=== PATIENT | female | born 1940 | race Caucasian/White ===

== ENCOUNTER → 2016-09-13 | Outpatient (CLI) | payer OTHER ==
[~2016-09-13] MED LIST: CALC600T9 PO; MULTCAP7 PO; MULTTAB58 PO; SIMV40TA4 PO
--- NOTE | 2016-09-13 09:45 | DIAGNOSTIC IMAGING REPORT ---
LEFT KNEE 1 OR 2 VIEWS ROUTINE CLINICAL HISTORY: LEFT KNEE PAIN pain COMPARISON: None. DISCUSSION: Mild degenerative change all major joint compartments. No evidence for fracture dislocation. No evidence for chondrocalcinosis. Cortical margins are intact. There is no evidence for soft tissue swelling. IMPRESSION: Mild degenerative change all major joint compartments. No acute process. Electronically signed by: Dustin Hussein M.D. 09/13/2016 9:43 AM Dictated Date/Time: 09/13/2016 9:43 AM
== END | disposition home or self-care (01) ==
LOC: C.RAD1850 09:31
PROVIDERS: ATTEND Family Medicine
DX: M25.562 Pain in left knee (principal)

== ENCOUNTER 2025-04-28 07:48 | Inpatient (IN) ==
[2025-04-28] MEDS: ACETAMINOPHEN 1,000 MG/100 ML VIAL IV STA (08:07)
--- NOTE | 2025-04-28 08:08 | Emergency Department Note ---
Impression & Plan Fall from standing, Closed left humeral fracture, Acute pain of left knee, Ambulatory dysfunction ED Provider Note HISTORY OF PRESENT ILLNESS: Patient is an 85-year-old female presenting with left shoulder pain and left knee pain after a fall. Patient reports that she was wearing flip-flops and returning from the bathroom this morning when she went to get into bed and her left foot seem to get caught and she fell to the ground. She reports that she landed on her left knee and her left shoulder and did strike her head. She denies loss of consciousness. She is not on any anticoagulation or antiplatelet therapies. Reports immediate pain and deformity to the left shoulder. Denies any numbness or tingling in her extremities. Denies any chest pain, shortness of breath or lightheadedness prior to her fall. She is currently complaining of 10 out of 10 pain in the left shoulder and pain in the left knee. ROS: as above PHYSICAL EXAM: Constitutional: Patient appears in no acute distress. HENT: Head: Normocephalic and atraumatic. Eyes: EOMI, PERRL Mouth/Throat: Mucous membranes moist. Neck: Trachea midline. Neck supple. No midline cervical spine TTP Cardiovascular: RRR, No murmurs, rubs or gallops. Intact distal pulses. Pulmonary/Chest: No respiratory distress. Breath sounds clear and equal bilaterally. No wheezes or rales. No chest wall tenderness to palpation. Abdominal: Abdomen soft, no tenderness, rebound or guarding. Back: No midline spinal tenderness, no paraspinal tenderness, no CVA tenderness. Musculoskeletal: - LUE: TTP to left anterior shoulder. No open wounds or obvious deformity. Unable to range shoulder secondary to pain. Patient holding arm flexed at elbow and held to body in position of comfort. Able to passively flex/extend elbow. Able to give "OK" sign, cross fingers and thumbs up. Sensation intact to light touch throughout nerve distributions of arm. Able to flex/extend at wrist. Intact radial pulse - LLE: TTP over left anterior knee. No obvious open wounds. Patient able to flex and extend knee. Intact DP/PT pulses. Able to dorsiflex/plantarflex ankle. No TTP to pelvis and not pain with internal/external rotation of femur at pelvis. Sensation intact to light touch throughout nerve distributions of of leg. Skin: Warm and dry. No rash, erythema, pallor or cyanosis Psychiatric: Appropriate mood and affect for situation. Neurological: Alert and keenly responsive. CN II-XII grossly intact MDM: - Vitals signs showed hypertension. Patient alerted as an "injury alert" on arrival to ER. - History obtained via patient. History as above. - Chronic conditions affecting care: HTN; HLD - Differential diagnoses include, but are not limited to: shoulder dislocation; humeral fracture; clavicular fracture; intracranial hemorrhage; knee contusion; knee fracture - Order placed for continuous cardiac monitoring. At this time, monitor showed rate of 84 bpm with normal sinus rhythm, per my interpretation. - External medical records reviewed. On review of patient's chart, her last tetanus shot was 05/12/2012. - EKG image interpreted by myself showed normal sinus rhythm. Rate 82 bpm. QT 376. No acute ischemic changes. - Laboratory workup interpreted by myself showed normal WBC; normal PT/INR; stable electrolytes; normal troponin; normal lipase - CT head wo contrast negative for acute intracranial pathology - CT cervical spine wo contrast negative for acute cervical spine fracture or subluxation. Noted to have a subpleural irregular linear right upper lobe density. Follow-up CT recommended. - Xray left shoulder reviewed interpreted by myself shows a left proximal humeral fracture, Per my interpretation. - CXR image negative for pneumonia. - Xray left knee negative for fracture. - Patient initially given 1g IV tylenol and 50 mcg IV fentanyl in ER. On reassessment, she is still complaining of significant pain in the left shoulder. Given 4 mg IV Zofran and 4 mg IV morphine - LUE was placed in sling for immobilization - Patient is attempted with an ambulatory challenge with nursing staff. However, nurses reports the patient is very unsteady and was unable to ambulate without assistance. Patient normally ambulates without any assistive devices at home. As such, will discuss case with hospitalist service for admission. - Discussion was had with transplant case manager about patient's case and need for admission - Hospitalist consulted for admission - Patient admitted to [facility] hospitalist service for further evaluation and management. ASSESSMENT AND PLAN: Diagnosis: Fall from standing; left humerus fracture; ambulatory dysfunction; acute left knee pain Plan: Admit Past Med/Surg History Problem List (Updated 04/28/25 @ 12:30 by Leda Casas MD) Ambulatory dysfunction (Acute) Acute pain of left knee (Acute) Closed left humeral fracture (Acute) Fall from standing (Acute) Numbness of right hand Neck pain Bilateral carotid bruits Ocular migraine Pessary maintenance Cystocele, midline Hyperlipidemia Hypertension Depression with anxiety Migraine optical Arthritis Chronic cough Cerumen impaction Medical History Presence of pessary Numbness and tingling in right hand History of anemia Hearing deficit Right-sided carotid artery obstruction Neck pain Osteoarthritis Chronic venous stasis Chronic cough Hypertension Hyperlipidemia Ocular migraine History of COVID-19 Hx of uterine prolapse Surgical History History of left cataract extraction History of colonoscopy Hx of tonsillectomy H/O wisdom tooth extraction H/O hysterectomy for benign disease History of ear surgery Family History Mother Hearing loss Stroke Sister Hearing loss Heart disease Breast cancer Hypertension Uterine cancer Grandfather (Maternal) Hearing loss Father Asthma Daughter Breast cancer Other No family history of adverse response to anesthesia Denies family history of Clotting disorder Social History Smoking Status: Never smoker Second Hand Exposure: No; Do You Dip or Chew Tobacco: No; Hx Alcohol Use: No Hx Substance Use: No Preferred Language: Tajik Communication Ability: Effective 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 Beliefs That Will Affect Care: None Current Living Situation: Alone current occupational status: retired Feels Safe at Home: Yes Assistive Devices: Denture - Upper, Denture - Lower and Glasses Allergies Allergies Allergy/AdvReac Type Severity Reaction Status Date / Time latex Allergy Mild skin Verified 12/23/24 14:12 redness Home Meds Home Medications Medication Instructions Recorded Confirmed multivitamin 1 cap PO QAM 01/28/19 04/28/25 simvastatin 40 mg tablet 40 mg PO QPM 01/28/19 04/28/25 ascorbic acid 1,000 1 ea PO 3XWK 11/22/23 04/28/25 [id number] powder effervescent pack (Emergen-C) cholecalciferol (vitamin D3) 125 125 mcg PO QAM 11/22/23 04/28/25 mcg (5,000 unit) tablet (Vitamin D3) losartan 50 mg tablet 100 mg PO QAM 11/22/23 04/28/25 amlodipine 5 mg tablet 2.5 mg PO DAILY 12/23/24 04/28/25 docusate sodium 100 mg capsule 0 mg PO UD 04/28/25 04/28/25 polyethylene glycol 3350 17 gram 17 g PO UD 04/28/25 04/28/25 oral powder packet (Miralax) Results & Data (ED) Vital Signs Vital Signs - 24 hr 04/28/25 08:15 04/28/25 08:15 04/28/25 08:22 Temperature 36.6 C 36.6 C Temperature Source Oral Oral Pulse Rate 88 77 Pulse Rate [Apical] 88 Pulse Rhythm Regular Regular Pulse Rhythm [Apical] Regular Pulse Strength Normal Pulse Strength [Apical] Normal Respiratory Rate 12 18 12 Respiratory Effort / Characteristics Non-Labored Spontaneous Non-Labored Spontaneous Respiratory Depth Normal Normal Respiratory Pattern Regular Regular Blood Pressure 178/77 H Blood Pressure [Right Arm] 178/77 H Blood Pressure Mean 110 Blood Pressure Mean [Right Arm] 110 Blood Pressure Position Semi-fowlers Blood Pressure Position [Right Arm] Semi-fowlers Pulse Oximetry 97 99 99 Oxygen Delivery Method Room Air Room Air Room Air Sepsis Recent Fever Within 48 Hours No Sepsis New/Unexplained Change in Mental Status No Sepsis Action Taken by Nursing No Action Required 04/28/25 08:23 04/28/25 09:22 04/28/25 10:00 Temperature Temperature Source Pulse Rate 82 Pulse Rate [Apical] 80 100 H Pulse Rhythm Pulse Rhythm [Apical] Regular Regular Pulse Strength Pulse Strength [Apical] Normal Normal Respiratory Rate 14 22 Respiratory Effort / Characteristics Non-Labored Spontaneous Non-Labored Spontaneous Respiratory Depth Normal Normal Respiratory Pattern Regular Regular Blood Pressure Blood Pressure [Right Arm] 143/67 H 160/82 H Blood Pressure Mean Blood Pressure Mean [Right Arm] 92 108 Blood Pressure Position Blood Pressure Position [Right Arm] Semi-fowlers Semi-fowlers Pulse Oximetry 97 96 Oxygen Delivery Method Room Air Room Air Sepsis Recent Fever Within 48 Hours Sepsis New/Unexplained Change in Mental Status Sepsis Action Taken by Nursing 04/28/25 11:00 04/28/25 12:07 04/28/25 12:24 Temperature Temperature Source Pulse Rate 84 Pulse Rate [Apical] 88 93 H Pulse Rhythm Pulse Rhythm [Apical] Regular Pulse Strength Pulse Strength [Apical] Normal Respiratory Rate 23 18 Respiratory Effort / Characteristics Non-Labored Spontaneous Non-Labored Spontaneous Respiratory Depth Normal Normal Respiratory Pattern Regular Regular Blood Pressure Blood Pressure [Right Arm] 132/63 119/79 Blood Pressure Mean Blood Pressure Mean [Right Arm] 86 92 Blood Pressure Position Blood Pressure Position [Right Arm] Semi-fowlers Lying Pulse Oximetry 96 95 Oxygen Delivery Method Room Air Room Air Sepsis Recent Fever Within 48 Hours Sepsis New/Unexplained Change in Mental Status Sepsis Action Taken by Nursing Laboratory Data 04/28/25 08:02 04/28/25 08:02 Lab Results 04/28/25 04/28/25 Range/Units 08:02 09:05 WBC 9.69 (4.8-10.8) K/ul RBC 4.31 (4.20-5.40) M/uL Hgb 13.6 (12.0-16.0) g/dl Hct 39.9 (37.0-47.0) % MCV 92.6 (80.0-100.0) fL MCH 31.6 (25.0-34.0) pg MCHC 34.1 (32.0-36.0) g/dL RDW Std Deviation 48.3 H (36.4-46.3) fL RDW Coeff of Kim 14.3 (11.5-14.5) % Plt Count 258 (130-400) K/uL MPV 10.3 (9.4-12.4) fL Immature Gran % (Auto) 0.6 % Neut % (Auto) 72.8 % Lymph % (Auto) 18.1 % [place] % (Auto) 5.9 % Eos % (Auto) 1.9 % Baso % (Auto) 0.7 % Neut # (Auto) 7.06 H (1.40-6.50) K/uL Lymph # (Auto) 1.75 (1.20-3.40) K/uL [place] # (Auto) 0.57 (0.11-0.59) K/uL Eos # (Auto) 0.18 (0.00-0.50) K/uL Baso # (Auto) 0.07 (0.00-0.20) K/uL Immature Gran # (Auto) 0.06 (0.01-0.20) K/uL PT Cancelled 10.5 INR Cancelled 1.0 Sodium 141 (136-145) mmol/L Potassium 4.1 (3.5-5.1) mmol/L Chloride 106 (98-107) mmol/L Carbon Dioxide 28 (21-32) mmol/L Anion Gap 7 (3-11) BUN 21 (6-23) mg/dl Creatinine 0.94 (0.6-1.2) mg/dl Est Cr Clr Drug Dosing 47.0 ml/min eGFR 60.21 BUN/Creatinine Ratio 22.3 H (10-20) Glucose 125 H (70-99(Fasting)) mg/dl Calcium 9.4 (8.6-10.3) mg/dl Total Bilirubin 0.5 (0.2-1.0) mg/dl AST 28 (13-39) U/L ALT 22 (7-52) U/L Alkaline Phosphatase 60 (34-104) U/L Troponin I High Sens 4.7 (0-14) pg/ml Total Protein 7.3 (6.0-8.3) gm/dl Albumin 4.5 (3.4-5.0) gm/dl Globulin 2.8 (2.5-4.0) gm/dl Albumin/Globulin Ratio 1.6 (0.9-2) Lipase 37 (11-82) U/L Administered Medications Discontinued Medications Fentanyl Citrate (Fentanyl Citrate Pf 100 Mcg/2 Ml Vial) 50 mcg IV NOW STA Stop: 04/28/25 07:57 Last Admin: 04/28/25 08:07 Dose: 50 mcg Documented By: Acetaminophen (Ofirmev) 1,000 mg in 100 mls @ 400 mls/hr IV NOW STA Stop: 04/28/25 08:10 Last Infusion: 04/28/25 08:24 Dose: Infused Documented By: Admin: 04/28/25 08:07 Dose: 400 mls/hr Documented By: Morphine Sulfate (Morphine Sulfate 4 Mg/Ml 1 Ml Carp\\Vial) 4 mg IV NOW STA Stop: 04/28/25 10:57 Last Admin: 04/28/25 11:14 Dose: 4 mg Documented By: Ondansetron HCl (Ondansetron Inj 2 Mg/Ml 2 Ml Vial) 4 mg IV NOW STA Stop: 04/28/25 10:57 Last Admin: 04/28/25 11:14 Dose: 4 mg Documented By: MS Imaging Data Radiologist's Impression: Cervical Spine CT 04/28/25 07:56 CT SCAN OF THE CERVICAL SPINE CLINICAL HISTORY: Fall. COMPARISON STUDY: None. TECHNIQUE: CT scan of the cervical spine is performed from the skull base to the upper thoracic spine. Images are reviewed in the axial, sagittal, and coronal planes. IV contrast was not administered for this examination. A dose lowering technique was utilized adhering to the principles of ALARA. FINDINGS: There is straightening of the cervical lordosis. Extensive degenerative changes at the C1-C2 articulation are present. There is severe multilevel facet arthrosis and moderate multilevel degenerative disc disease within the cervical spine. No cervical spine fractures are present. There is no prevertebral edema. A subpleural irregular linear right upper lobe density measures approximately 2.9 cm. This is partially imaged on this exam and corresponds to the finding on chest radiograph from ear[facility] today. Additional biapical subpleural densities favor scarring. IMPRESSION: 1. No acute cervical spine fracture or subluxation. 2. Partially visualized subpleural irregular linear right upper lobe density which corresponds to the finding on chest radiograph from earlier today. This could represent scarring or less likely an infectious process. However, an underlying pulmonary lesion cannot be excluded. A nonemergent chest CT is recommended. ACT 112: Positive. There are findings on this exam that require communication between the performing entity and the patient following Patient Test Result Information Act ([place] Act 112) guidelines. Electronically signed by: Hector Lauren M.D. 04/28/2025 9:13 AM Chest X-Ray 04/28/25 07:56 XR chest 1V portable CLINICAL HISTORY: fall COMPARISON STUDY: None FINDINGS: There is mild cardiomegaly without pulmonary vascular congestion. There is a 1 cm density overlying the right upper lung laterally. No consolidation or pleural effusion seen otherwise. No pneumothorax. No grossly displaced rib fractures seen. There is an acute fracture proximal left humerus. IMPRESSION: 1. Acute fracture proximal left humerus. 2. Nodular density overlying the right upper lung laterally. Differential diagnosis includes artifact, pulmonary nodule, small area of consolidation, and scarring. Suggest follow-up chest CT. 3. No other acute findings seen at the chest. ACT 112: Negative or not required by law. Electronically signed by: Ross Martinez M.D. 04/28/2025 8:[address] 04/28/25 07:56 CT head/brain wo con CLINICAL HISTORY: 85 years-old Female with fall from standing. Acute head trauma status post fall TECHNIQUE: Multiple axial CT images of the head were obtained without contrast. A dose lowering technique was utilized adhering to the principles of ALARA. CT DOSE: 1019.97 mGy.cm COMPARISON: 06/04/2023 FINDINGS: No acute intracranial hemorrhage, midline shift, intracranial mass, hydrocephalus, territorial ischemia or abnormal extra-axial collection. Involutional changes with chronic microvascular ischemic disease. The calvarium is intact. The paranasal sinuses, mastoid air cells, and middle ear cavities are clear. IMPRESSION: No acute intracranial abnormality or calvarial fracture. ACT 112: Negative or not required by law. The above report was generated using voice recognition software. It may contain grammatical, syntax or spelling errors. Electronically signed by: Zenon Ramirez M.D. 04/28/2025 9:03 AM Knee X-Ray 04/28/25 07:56 XR knee LT 3V CLINICAL HISTORY: L knee pain s/p fall COMPARISON: 06/01/2021 FINDINGS: There is moderate osteoarthritis. No fracture or dislocation seen. IMPRESSION: No fracture seen ACT 112: Negative or not required by law. Electronically signed by: Ross Martinez M.D. 04/28/2025 8:40 AM Shoulder X-Ray 04/28/25 07:56 XR shoulder LT min 2V routine CLINICAL HISTORY: L shoulder pain s/p fall COMPARISON: None FINDINGS: There is an acute nondisplaced fracture proximal left humerus at the surgical neck which extends superiorly and undermines the greater tuberosity. No other fracture or dislocation seen at the left shoulder. IMPRESSION: Acute fracture proximal left humerus. ACT 112: Negative or not required by law. Electronically signed by: Ross Martinez M.D. 04/28/2025 8:37 AM Discharge Plan Visit Data Chief Complaint: Fall Stated Complaint: FALL ED Provider: Leda Casas Discharge Problem: Fall from standing, Closed left humeral fracture, Acute pain of left knee, Ambulatory dysfunction Patient Disposition: Admitted As Inpatient Condition: Fair Forms Stand Alone Forms: [facility] [employer] Prescriptions Prescriptions: No Action multivitamin capsule 1 cap PO QAM Patient Comments: 04/28- otc unable to verify simvastatin 40 mg tablet 40 mg PO QPM amlodipine 5 mg tablet 2.5 mg PO DAILY losartan 50 mg Tablet 100 mg PO QAM Emergen-C 1,000 mg Powder Effervescent In Packet 1 ea PO 3XWK Patient Comments: 04/28- otc unable to verify cholecalciferol (vitamin D3) [Vitamin D3] 125 mcg (5,000 unit) Tablet 125 mcg PO QAM Patient Comments: 04/28- otc unable to verify polyethylene glycol 3350 [Miralax] 17 gram Powder In Packet 17 g PO UD Patient Comments: 04/28- otc unable to verify docusate sodium 100 mg Capsule 0 mg PO UD Patient Comments: 04/28- otc unable to verify Referrals Referrals: Linette Dubon MD [Primary Care Provider] -
[2025-04-28 08:15] LABS: Hematocrit (blood only) 39.9 % (37.0-47.0); Hemoglobin 13.6 g/dl (12.0-16.0); Immature Granulocytes # (auto) 0.06 K/uL (0.01-0.20); Immature Granulocytes % (auto) 0.6 %; Mean Corpuscular Hemoglobin 31.6 pg (25.0-34.0); Mean Corpuscular Volume 92.6 fL (80.0-100.0); Platelet Count 258 K/uL (130-400); RDW Standard Deviation 48.3 fL (36.4-46.3); Red Blood Count 4.31 M/uL (4.20-5.40); White Blood Count 9.69 K/ul (4.8-10.8)
[2025-04-28 08:35] LABS: Alanine Aminotransferase 22.0 U/L (7-52); Albumin Globulin Ratio 1.6 (0.9-2); Albumin Level 4.5 gm/dl (3.4-5.0); Alkaline Phosphatase 60.0 U/L (34-104); Anion Gap 7.0 (3-11); Bilirubin,Total 0.5 mg/dl (0.2-1.0); Blood Urea Nitrogen 21.0 mg/dl (6-23); Calcium 9.4 mg/dl (8.6-10.3); Carbon Dioxide 28.0 mmol/L (21-32); Chloride 106.0 mmol/L (98-107); Creatinine Clr Calc Pharmacy 47.0 ml/min; Globulin 2.8 gm/dl (2.5-4.0); Glucose 125.0 mg/dl (70-99(Fasting)); Lipase 37.0 U/L (11-82); Potassium 4.1 mmol/L (3.5-5.1); Sodium 141.0 mmol/L (136-145); Total Protein 7.3 gm/dl (6.0-8.3)
--- NOTE | 2025-04-28 08:38 | XRay Report ---
XR shoulder LT min 2V routine CLINICAL HISTORY: L shoulder pain s/p fall COMPARISON: None FINDINGS: There is an acute nondisplaced fracture proximal left humerus at the surgical neck which e xtends superiorly and undermines the greater tuberosity. No other fracture or dislocation seen at the left shoulder. IMPRESSION: Acute fracture proximal left humerus. ACT 112: Negative or not required by law. Electronically signed by: Ross Martinez M.D. 04/28/2025 8:37 AM
--- NOTE | 2025-04-28 08:41 | XRay Report ---
XR chest 1V portable CLINICAL HISTORY: fall COMPARISON STUDY: None FINDINGS: There is mild cardiomegaly without pulmonary vascular congestion. There is a 1 cm density o verlying the right upper lung laterally. No consolidation or pleural effusion seen otherwise. No pneu mothorax. No grossly displaced rib fractures seen. There is an acute fracture proximal left humerus. IMPRESSION: 1. Acute fracture proximal left humerus. 2. Nodular density overlying the right upper lung laterally. Differential diagnosis includes artifact , pulmonary nodule, small area of consolidation, and scarring. Suggest follow-up chest CT. 3. No other acute findings seen at the chest. ACT 112: Negative or not required by law. Electronically signed by: Ross Martinez M.D. 04/28/2025 8:40 AM
--- NOTE | 2025-04-28 08:41 | XRay Report ---
XR knee LT 3V CLINICAL HISTORY: L knee pain s/p fall COMPARISON: 06/01/2021 FINDINGS: There is moderate osteoarthritis. No fracture or dislocation seen. IMPRESSION: No fracture seen ACT 112: Negative or not required by law. Electronically signed by: Ross Martinez M.D. 04/28/2025 8:40 AM
--- NOTE | 2025-04-28 09:04 | CT Scan Report ---
CT head/brain wo con CLINICAL HISTORY: 85 years-old Female with fall from standing. Acute head trauma status post fall TECHNIQUE: Multiple axial CT images of the head were obtained without contrast. A dose lowering tech nique was utilized adhering to the principles of ALARA. CT DOSE: 1019.97 mGy.cm COMPARISON: 06/04/2023 FINDINGS: No acute intracranial hemorrhage, midline shift, intracranial mass, hydrocephalus, territorial ischem ia or abnormal extra-axial collection. Involutional changes with chronic microvascular ischemic disea se. The calvarium is intact. The paranasal sinuses, mastoid air cells, and middle ear cavities are clear . IMPRESSION: No acute intracranial abnormality or calvarial fracture. ACT 112: Negative or not required by law. The above report was generated using voice recognition software. It may contain grammatical, syntax o r spelling errors. Electronically signed by: Zenon Ramirez M.D. 04/28/2025 9:03 AM
--- NOTE | 2025-04-28 09:14 | CT Scan Report ---
CT SCAN OF THE CERVICAL SPINE CLINICAL HISTORY: Fall. COMPARISON STUDY: None. TECHNIQUE: CT scan of the cervical spine is performed from the skull base to the upper thoracic spine . Images are reviewed in the axial, sagittal, and coronal planes. IV contrast was not administered fo r this examination. A dose lowering technique was utilized adhering to the principles of ALARA. FINDINGS: There is straightening of the cervical lordosis. Extensive degenerative changes at the C1-C 2 articulation are present. There is severe multilevel facet arthrosis and moderate multilevel degene rative disc disease within the cervical spine. No cervical spine fractures are present. There is no p revertebral edema. A subpleural irregular linear right upper lobe density measures approximately 2.9 cm. This is partially imaged on this exam and corresponds to the finding on chest radiograph from ear [facility] today. Additional biapical subpleural densities favor scarring. IMPRESSION: 1. No acute cervical spine fracture or subluxation. 2. Partially visualized subpleural irregular linear right upper lobe density which corresponds to the finding on chest radiograph from earlier today. This could represent scarring or less likely an infe ctious process. However, an underlying pulmonary lesion cannot be excluded. A nonemergent chest CT is recommended. ACT 112: Positive. There are findings on this exam that require communication between the performing entity and the patient following Patient Test Result Information Act ([place] Act 112) guidelines. Electronically signed by: Hector Lauren M.D. 04/28/2025 9:13 AM
[2025-04-28 09:50] LABS: INR 1.0 (0.9-1.1); Prothrombin Time 10.5 Seconds (9.0-12.0)
[2025-04-28] MEDS: ONDANSETRON INJ 2 MG/ML 2 ML VIAL IV STA (11:14)
[2025-04-28] MEDS: MoRPHine SULFATE 4 MG/ML 1 ML CARP\\VIAL IV STA (11:14)
--- NOTE | 2025-04-28 11:26 | History & Physical Report ---
Date of Service April 28, 2025 Assessment & Plan (1) Ambulatory dysfunction: (2) Closed left humeral fracture: (3) Acute pain of left knee: Plan This patient is an 85-year-old female who presented on the morning of 04/28 after sustaining a mechanical fall at home. She was standing at the side of her bed taking off of a flap when she fell forward and landed on her left face, shoulder, and knee. Acute proximal left humerus fracture found on additional imaging; all other imaging negative for acute fracture/abnormalities. #Acute proximal left humerus fracture Nondisplaced fracture, however this does extend superiorly undermining of the greater tuberosity Orthopedic surgery consult appreciated Sling placement Scheduled acetaminophen 1000 mg p.o. q8h for pain control IV morphine 1 to 2 mg q3h as needed for breakthrough pain Bowel regimen with MiraLAX QAM and docusate sodium BID #Mechanical fall | ambulatory function | left knee pain No acute fracture of the left knee on x-ray imaging PT/OT evaluations appreciated Fall precautions #HTN Continue amlodipine, losartan #HLD Continue simvastatin Disposition: Admit to [facility] VTE PPx: SCDs pending ortho eval Updated patient's son (Solomon) who lives in [place] over the phone on 04/28. History of Present Illness Chief Complaint: Fall Primary Care Provider: Linette Dubon MD Mrs. Bangura is an 85-year-old female with PMH of arthritis, migraine, anxiety, depression, HTN, and HLD. She presented via EMS on 04/28 after sustaining a mechanical fall this morning. She got up out of her bed around 0530, and reports that her foot got stuck attempting to take off a flip-flop while standing on the side of the bed. She fell forward onto the left side of her body and struck her left face, shoulder, and knee. No LOC. No blood thinner use. Patient is normally independent at baseline, and does not use ambulatory assist devices. She lives alone, and had to crawl to the kitchen to reach her phone. This took approximately half an hour, until she could get ahold of her niece (Brenda) who lives 10 minutes away. Patient denies any pain in her head or left knee at admission. However she has 10 out of 10 pain in her left shoulder with movements. She describes it as a dull/steady pain. No radiation down the arm, to the back, or to the chest wall. She denies any numbness or tingling going down her left arm. Patient did not take her regular morning medicines today. She manages her own medicine at home. No recent change in medications in the past week. She reports this is her "first fall" and denies any prior injuries to her left shoulder. She denies any history of knee, hip, or shoulder replacements. She does not use supplemental oxygen at baseline or CPAP at night. 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 No left knee pain at present. Patient denies smoking, tobacco use, or recent alcohol use. Patient lives with a cat ("Putty") who is being watched by patient's niece. Patient is hypertensive at 143/67; vitals otherwise stable. ED course: Fentanyl citrate 50 mcg IV Acetaminophen 1000 mg IV Morphine sulfate 4 mg IV Ondansetron 4 mg IV ROS: Patient endorses left shoulder pain. Patient denies fever, chills, night-sweats, dizziness/lightheadedness prior to fall, headaches, changes in vision, chest pain, SOB, cough, pleuritic CP, abdominal pain, N/V/D, left knee pain, burning with urination, changes in urinary/bowel habits, or numbness or tingling going down the left arm. Allergies Allergy/AdvReac Type Severity Reaction Status Date / Time latex Allergy Mild skin Verified 12/23/24 14:12 redness Home Medications Medication Instructions Recorded Confirmed Type multivitamin 1 cap PO QAM 01/28/19 04/28/25 History simvastatin 40 mg tablet 40 mg PO QPM 01/28/19 04/28/25 History ascorbic acid 1,000 1 ea PO 3XWK 11/22/23 04/28/25 History io-iqvznhbwpakk-ozkmyxpk powder effervescent pack (Emergen-C) cholecalciferol (vitamin D3) 125 125 mcg PO QAM 11/22/23 04/28/25 History mcg (5,000 unit) tablet (Vitamin D3) losartan 50 mg tablet 100 mg PO QAM 11/22/23 04/28/25 History amlodipine 5 mg tablet 2.5 mg PO DAILY 12/23/24 04/28/25 History docusate sodium 100 mg capsule 0 mg PO UD 04/28/25 04/28/25 History polyethylene glycol 3350 17 gram 17 g PO UD 04/28/25 04/28/25 History oral powder packet (Miralax) Past Med/Surg History Problem List (Updated 04/28/25 @ 12:30 by Leda Casas MD) Ambulatory dysfunction (Acute) Acute pain of left knee (Acute) Closed left humeral fracture (Acute) Fall from standing (Acute) Numbness of right hand Neck pain Bilateral carotid bruits Ocular migraine Pessary maintenance Cystocele, midline Hyperlipidemia Hypertension Depression with anxiety Migraine optical Arthritis Chronic cough Cerumen impaction Medical History Presence of pessary Numbness and tingling in right hand History of anemia Hearing deficit Right-sided carotid artery obstruction Neck pain Osteoarthritis Chronic venous stasis Chronic cough Hypertension Hyperlipidemia Ocular migraine History of COVID-19 Hx of uterine prolapse Surgical History History of left cataract extraction History of colonoscopy Hx of tonsillectomy H/O wisdom tooth extraction H/O hysterectomy for benign disease History of ear surgery Family History Mother Hearing loss Stroke Sister Hearing loss Heart disease Breast cancer Hypertension Uterine cancer Grandfather (Maternal) Hearing loss Father Asthma Daughter Breast cancer Other No family history of adverse response to anesthesia Denies family history of Clotting disorder Social History Smoking Status: Never smoker Second Hand Exposure: No; Do You Dip or Chew Tobacco: No; Tobacco Cessation Education Requested by Patient: No Hx Alcohol Use: No Hx Substance Use: No Preferred Language: Arabic Communication Ability: Effective Line Technician Required: No Beliefs That Will Affect Care: None Current Living Situation: Alone current occupational status: retired Other Information That Helps Us Care for You: No Feels Safe at Home: Yes Safety Concerns: Feels Safe At This Time Assistive Devices: Glasses and Hearing Aid - Bilateral Review of Systems Review of Systems: See HPI above Physical Exam Physical Exam: General: Moderate physical distress secondary to left shoulder pain; niece (Brenda) at bedside; non-toxic appearing; frail-appearing; cooperative; SpO2 95% on RA HEENT: normocephalic, atraumatic; PERRLA; vision and hearing intact Neck: supple; trachea midline Left shoulder: Tender to palpation; no obvious deformities Skin: warm, dry without signs of tenting; no cyanosis CV: chest wall NTP; RRR; S1/S2 normal; no murmurs/rubs/gallops; pulses intact and symmetric at radial, DP, and PT Lungs: no acute respiratory distress; symmetrical chest wall expansion; clear breath sounds across all lung hyde w/o adventitious sounds; no wheezing ABD: Soft, NTP; BS present; no rebound/guarding; no distention MSK: no tics or fasciculations; no edema noted in the LEs b/l, nonerythematous UEs: 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 when compared to 5/5 in the right; patient does demonstrate ability to flex and extend her left wrist, but attempts at flexion/extension of the the left elbow or shoulder are met with immediate pain LEs: Patient demonstrates ability to wiggle toes, plantarflex/dorsiflex, flex/extend the left knee, and lift legs off the bed bilaterally with 5/5 strength; contusion noted on the left knee, with moderate edema surrounding the patella (nonerythematous, not hot to touch) Neuro: A&Ox3; normal mood and affect; fluent speech; patient reports sensation is intact and symmetric in the fingers and lower arms bilaterally assessed via light touch in multiple dermatomes; NV intact at the ulnar and radial pulse bilaterally Results & Data Results & Data Vital Signs (Past 12 Hours) Vital Signs Temp Pulse Pulse Resp BP BP Pulse Ox 04/28/25 09:22 80 14 143/67 H 97 04/28/25 08:23 82 04/28/25 08:22 36.6 C 88 12 178/77 H 99 04/28/25 08:15 77 18 99 04/28/25 08:15 36.6 C 88 12 178/77 H 97 O2 Del Method 04/28/25 09:22 Room Air 04/28/25 08:23 04/28/25 08:22 Room Air 04/28/25 08:15 Room Air 04/28/25 08:15 Room Air Laboratory Results Abnormal lab results 04/28/25 Range/Units 08:02 RDW Std Deviation 48.3 H (36.4-46.3) fL Neut # (Auto) 7.06 H (1.40-6.50) K/uL BUN/Creatinine Ratio 22.3 H (10-20) Glucose 125 H (70-99(Fasting)) mg/dl Diagnostic Findings Cervical Spine CT 04/28/25 07:56 CT SCAN OF THE CERVICAL SPINE CLINICAL HISTORY: Fall. COMPARISON STUDY: None. TECHNIQUE: CT scan of the cervical spine is performed from the skull base to the upper thoracic spine. Images are reviewed in the axial, sagittal, and coronal planes. IV contrast was not administered for this examination. A dose lowering technique was utilized adhering to the principles of ALARA. FINDINGS: There is straightening of the cervical lordosis. Extensive degenerative changes at the C1-C2 articulation are present. There is severe multilevel facet arthrosis and moderate multilevel degenerative disc disease within the cervical spine. No cervical spine fractures are present. There is no prevertebral edema. A subpleural irregular linear right upper lobe density measures approximately 2.9 cm. This is partially imaged on this exam and corresponds to the finding on chest radiograph from ear[facility] today. Additional biapical subpleural densities favor scarring. IMPRESSION: 1. No acute cervical spine fracture or subluxation. 2. Partially visualized subpleural irregular linear right upper lobe density which corresponds to the finding on chest radiograph from earlier today. This could represent scarring or less likely an infectious process. However, an underlying pulmonary lesion cannot be excluded. A nonemergent chest CT is recommended. ACT 112: Positive. There are findings on this exam that require communication between the performing entity and the patient following Patient Test Result Information Act ([place] Act 112) guidelines. Electronically signed by: Hector Lauren M.D. 04/28/2025 9:13 AM Chest X-Ray 04/28/25 07:56 XR chest 1V portable CLINICAL HISTORY: fall COMPARISON STUDY: None FINDINGS: There is mild cardiomegaly without pulmonary vascular congestion. There is a 1 cm density overlying the right upper lung laterally. No consolidation or pleural effusion seen otherwise. No pneumothorax. No grossly displaced rib fractures seen. There is an acute fracture proximal left humerus. IMPRESSION: 1. Acute fracture proximal left humerus. 2. Nodular density overlying the right upper lung laterally. Differential diagnosis includes artifact, pulmonary nodule, small area of consolidation, and scarring. Suggest follow-up chest CT. 3. No other acute findings seen at the chest. ACT 112: Negative or not required by law. Electronically signed by: Ross Martinez M.D. 04/28/2025 8:[address] 04/28/25 07:56 CT head/brain wo con CLINICAL HISTORY: 85 years-old Female with fall from standing. Acute head trauma status post fall TECHNIQUE: Multiple axial CT images of the head were obtained without contrast. A dose lowering technique was utilized adhering to the principles of ALARA. CT DOSE: 1019.97 mGy.cm COMPARISON: 06/04/2023 FINDINGS: No acute intracranial hemorrhage, midline shift, intracranial mass, hydrocephalus, territorial ischemia or abnormal extra-axial collection. Involutional changes with chronic microvascular ischemic disease. The calvarium is intact. The paranasal sinuses, mastoid air cells, and middle ear cavities are clear. IMPRESSION: No acute intracranial abnormality or calvarial fracture. ACT 112: Negative or not required by law. The above report was generated using voice recognition software. It may contain grammatical, syntax or spelling errors. Electronically signed by: Zenon Ramirez M.D. 04/28/2025 9:03 AM Knee X-Ray 04/28/25 07:56 XR knee LT 3V CLINICAL HISTORY: L knee pain s/p fall COMPARISON: 06/01/2021 FINDINGS: There is moderate osteoarthritis. No fracture or dislocation seen. IMPRESSION: No fracture seen ACT 112: Negative or not required by law. Electronically signed by: Ross Martinez M.D. 04/28/2025 8:40 AM Shoulder X-Ray 04/28/25 07:56 XR shoulder LT min 2V routine CLINICAL HISTORY: L shoulder pain s/p fall COMPARISON: None FINDINGS: There is an acute nondisplaced fracture proximal left humerus at the surgical neck which extends superiorly and undermines the greater tuberosity. No other fracture or dislocation seen at the left shoulder. IMPRESSION: Acute fracture proximal left humerus. ACT 112: Negative or not required by law. Electronically signed by: Ross Martinez M.D. 04/28/2025 8:37 AM ECG Additional Comments: ECG revealed NSR 82 bpm; QTc 439 Code Status & VTE Plan Code Status DNR/DNI VTE Prophylaxis Plan VTE Prophylaxis will be ordered: Yes Supervising Physician Co-Signing Physician Notes I personally examined the patient and verified all aguila points of history and exam, discussed case, and agree with decision making with Jaswant Moore PAC pain worse again R handed fortunately vitals noted nad but laying very still breathing unlabored no accessory muscles L arm in a sling humerus fracture -pain uncontrolled, revamp regimen -await ortho input, continue in sling otherwise as above PG Care Time/CCT Total # of Minutes Spent Total Time Spent with Patient: Total time spent is greater than 50% in coordination of care (as documented) at patient's floor/unit and/or counseling patient: Coding [place] [address] INT INP/OBS CARE 3/75MIN Patient Type Established Medical Decision Making Moderate Complexity Diagnoses Ambulatory dysfunction R26.2 Closed left humeral fracture S42.302A Acute pain of left knee M25.562
--- NOTE | 2025-04-28 12:48 | Electrocardiogram Report ---
Test Reason : Blood Pressure : */* mmHG Vent. Rate : 82 BPM Atrial Rate : 82 BPM P-R Int : 142 ms QRS Dur : 80 ms QT Int : 376 ms P-R-T Axes : 54 22 62 degrees QTcB Int : 439 ms Normal sinus rhythm Nonspecific ST and T wave abnormality Abnormal ECG No previous ECGs available Confirmed by Xiang Boone ([id number]) on 04/28/2025 12:47:51 PM Referred By: Confirmed By: Xiang Boone
[2025-04-28] MEDS ORDERED: MoRPHine SULFATE 4 MG/ML 1 ML CARP\\VIAL IV PRN ×2 (14:05→17:12)
[2025-04-28] MEDS: MoRPHine SULFATE 4 MG/ML 1 ML CARP\\VIAL IV PRN (15:15)
[2025-04-28] MEDS: ACETAMINOPHEN 1,000 MG/100 ML VIAL IV PRN (16:00)
[2025-04-28] MEDS: KETOROLAC TROMETHAMINE 15 MG/ML VIAL IV ONE (18:04)
[2025-04-28] MEDS: ACETAMINOPHEN 500 MG TAB PO STA (18:05)
[2025-04-28] MEDS: SIMVASTATIN 40 MG TAB PO SCH (20:42)
[2025-04-28] MEDS: ACETAMINOPHEN 325 MG TAB PO SCH (20:43)
[2025-04-28 21:14] LABS: Appearance Urine Cloudy (Clear); Bacteria Urine Automated 3+ (None Seen); Cast Urine Automated 0-2 /lpf (0-2); Glucose Urine UA Negative (Negative); WBC Urine Automated >50 /hpf (0-5)
[2025-04-29] MEDS: MELATONIN 3 MG TAB PO PRN (02:01)
--- NOTE | 2025-04-29 07:27 | Orthopedic Consultation ---
Date of Service April 29, 2025 Assessment & Plan (1) Closed fracture of left proximal humerus: * Case/imaging reviewed and discussed with Dr Parrish * Recommend closed management of left proximal humerus fracture * Weight bearing status: NWB LUE * Sling for comfort. Encourage sitting upright in chair/bed to allow gravity traction on the shoulder * Daily treatment: Physical Therapy/ Occupational Therapy per protocol * Pain control * Disposition: TBD * Remainder care per primary team * Will follow in office, 2-3 weeks for repeat x-ray History of Present Illness Reason for Consultation: Left shoulder pain Requesting Physician: . Attending Physician: Shawn Daniel MD .Patient is a 85 y/o female with left shoulder pain. PMH including arthritis, migraine, anxiety, depression, HTN, and HLD. Presents to hospital with left shoulder pain after a fall that occurred yesterday morning. Per report patient was down on the ground for some time before her niece arrived to help her up. She complaint left shoulder pain. Current workup including x-ray left shoulder demonstrating nondisplaced proximal humerus fracture. Admitted to hospital medicine team. Orthopedics consulted for management recommendations. At time of exam patient sitting in bed, no acute distress. Splint in place. Endorses moderate pain in the left shoulder that increases with any attempted movements. Denies tingling numbness of the left upper extremity. Lives alone, independently. No assistive device at the baseline. Allergies Allergy/AdvReac Type Severity Reaction Status Date / Time latex Allergy Mild skin Verified 12/23/24 14:12 redness Home Medications Medication Instructions Recorded Confirmed Type multivitamin 1 cap PO QAM 01/28/19 04/28/25 History simvastatin 40 mg tablet 40 mg PO QPM 01/28/19 04/28/25 History ascorbic acid 1,000 1 ea PO 3XWK 11/22/23 04/28/25 History yb-cetgcmcohyal-fyoxbaqf powder effervescent pack (Emergen-C) cholecalciferol (vitamin D3) 125 125 mcg PO QAM 11/22/23 04/28/25 History mcg (5,000 unit) tablet (Vitamin D3) losartan 50 mg tablet 100 mg PO QAM 11/22/23 04/28/25 History amlodipine 5 mg tablet 2.5 mg PO DAILY 12/23/24 04/28/25 History docusate sodium 100 mg capsule 0 mg PO UD 04/28/25 04/28/25 History polyethylene glycol 3350 17 gram 17 g PO UD 04/28/25 04/28/25 History oral powder packet (Miralax) Past Med/Surg History Problem List (Updated 04/29/25 @ 07:26 by Anjmu Traore PA-C) Closed fracture of left proximal humerus Ambulatory dysfunction (Acute) Acute pain of left knee (Acute) Fall from standing (Acute) Numbness of right hand Neck pain Bilateral carotid bruits Ocular migraine Pessary maintenance Cystocele, midline Hyperlipidemia Hypertension Depression with anxiety Migraine optical Arthritis Chronic cough Cerumen impaction Medical History (Updated 04/29/25 @ 07:26 by Anjum Traore PA-C) Presence of pessary Numbness and tingling in right hand follows with Dr. Recio History of anemia Hearing deficit Right-sided carotid artery obstruction per pt states she was told "just a little something" Neck pain Osteoarthritis Chronic venous stasis Chronic cough Hypertension Hyperlipidemia Ocular migraine History of COVID-2020--mild symptoms, no symptoms now Hx of uterine prolapse Surgical History History of left cataract extraction History of colonoscopy Hx of tonsillectomy H/O wisdom tooth extraction H/O hysterectomy for benign disease prolapse History of ear surgery stapes bone surgery-left ear Family History Mother Hearing loss Stroke Sister Hearing loss Heart disease Breast cancer Hypertension Uterine cancer Grandfather (Maternal) Hearing loss Father Asthma Daughter Breast cancer Other No family history of adverse response to anesthesia Denies family history of Clotting disorder Social History Smoking Status: Never smoker Second Hand Exposure: No; Do You Dip or Chew Tobacco: No; Tobacco Cessation Education Requested by Patient: No Hx Alcohol Use: No Hx Substance Use: No Preferred Language: German Communication Ability: Effective Insole Reinforcer Required: No Beliefs That Will Affect Care: None Current Living Situation: Alone current occupational status: retired Other Information That Helps Us Care for You: No Feels Safe at Home: Yes Safety Concerns: Feels Safe At This Time Assistive Devices: Glasses and Hearing Aid - Bilateral Review of Systems All systems reviewed & are unremarkable except as noted in HPI & below. Physical Exam . * General: Alert and oriented, no acute distress * Constitutional: well-developed, well-nourished. * Respiratory: Normal respiratory effort, no distress * Gastrointestinal: No tenderness to palpation, no rigidity or guarding. * Skin: No rash or lesion. * Neurologic: Grossly normal * Musculoskeletal: Left upper extremity with sling applied, not removed for exam. Diffuse soft tissue swelling of left shoulder region, otherwise no obvious deformity or overlying skin changes to the left arm. TTP proximal humerus, anterior shoulder region. Otherwise no tenderness of the elbow region, forearm, wrist/hand. ROM shoulder not assessed. AROM elbow significantly limited secondary to pain at the shoulder. AROM wrist flexion's extension, finger flexion extension intact. Sensation intact to radial/median/ulnar nerve dissipations. Brisk capillary refill. Results & Data Results & Data Laboratory Results . Diagnostic Findings . Cervical Spine CT 04/28/25 07:56 CT SCAN OF THE CERVICAL SPINE CLINICAL HISTORY: Fall. COMPARISON STUDY: None. TECHNIQUE: CT scan of the cervical spine is performed from the skull base to the upper thoracic spine. Images are reviewed in the axial, sagittal, and coronal planes. IV contrast was not administered for this examination. A dose lowering technique was utilized adhering to the principles of ALARA. FINDINGS: There is straightening of the cervical lordosis. Extensive degenerative changes at the C1-C2 articulation are present. There is severe multilevel facet arthrosis and moderate multilevel degenerative disc disease within the cervical spine. No cervical spine fractures are present. There is no prevertebral edema. A subpleural irregular linear right upper lobe density measures approximately 2.9 cm. This is partially imaged on this exam and corresponds to the finding on chest radiograph from ear[facility] today. Additional biapical subpleural densities favor scarring. IMPRESSION: 1. No acute cervical spine fracture or subluxation. 2. Partially visualized subpleural irregular linear right upper lobe density which corresponds to the finding on chest radiograph from earlier today. This could represent scarring or less likely an infectious process. However, an underlying pulmonary lesion cannot be excluded. A nonemergent chest CT is recommended. ACT 112: Positive. There are findings on this exam that require communication between the performing entity and the patient following Patient Test Result Information Act ([place] Act 112) guidelines. Electronically signed by: Hector Lauren M.D. 04/28/2025 9:13 AM Chest X-Ray 04/28/25 07:56 XR chest 1V portable CLINICAL HISTORY: fall COMPARISON STUDY: None FINDINGS: There is mild cardiomegaly without pulmonary vascular congestion. There is a 1 cm density overlying the right upper lung laterally. No consolidation or pleural effusion seen otherwise. No pneumothorax. No grossly displaced rib fractures seen. There is an acute fracture proximal left humerus. IMPRESSION: 1. Acute fracture proximal left humerus. 2. Nodular density overlying the right upper lung laterally. Differential diagnosis includes artifact, pulmonary nodule, small area of consolidation, and scarring. Suggest follow-up chest CT. 3. No other acute findings seen at the chest. ACT 112: Negative or not required by law. Electronically signed by: Ross Martinez M.D. 04/28/2025 8:[address] 04/28/25 07:56 CT head/brain wo con CLINICAL HISTORY: 85 years-old Female with fall from standing. Acute head trauma status post fall TECHNIQUE: Multiple axial CT images of the head were obtained without contrast. A dose lowering technique was utilized adhering to the principles of ALARA. CT DOSE: 1019.97 mGy.cm COMPARISON: 06/04/2023 FINDINGS: No acute intracranial hemorrhage, midline shift, intracranial mass, hydrocephalus, territorial ischemia or abnormal extra-axial collection. Involutional changes with chronic microvascular ischemic disease. The calvarium is intact. The paranasal sinuses, mastoid air cells, and middle ear cavities are clear. IMPRESSION: No acute intracranial abnormality or calvarial fracture. ACT 112: Negative or not required by law. The above report was generated using voice recognition software. It may contain grammatical, syntax or spelling errors. Electronically signed by: Zenon Ramirez M.D. 04/28/2025 9:03 AM Knee X-Ray 04/28/25 07:56 XR knee LT 3V CLINICAL HISTORY: L knee pain s/p fall COMPARISON: 06/01/2021 FINDINGS: There is moderate osteoarthritis. No fracture or dislocation seen. IMPRESSION: No fracture seen ACT 112: Negative or not required by law. Electronically signed by: Ross Martinez M.D. 04/28/2025 8:40 AM Shoulder X-Ray 04/28/25 07:56 XR shoulder LT min 2V routine CLINICAL HISTORY: L shoulder pain s/p fall COMPARISON: None FINDINGS: There is an acute nondisplaced fracture proximal left humerus at the surgical neck which extends superiorly and undermines the greater tuberosity. No other fracture or dislocation seen at the left shoulder. IMPRESSION: Acute fracture proximal left humerus. ACT 112: Negative or not required by law. Electronically signed by: Ross Martinez M.D. 04/28/2025 8:37 AM PG Care Time/CCT Total # of Minutes Spent Total Time Spent with Patient: Total time spent is greater than 50% in coordination of care (as documented) at patient's floor/unit and/or counseling patient: [place] [address] IN/OBS CONSULT LVL 3,45M Patient Type New Medical Decision Making Straight Forward Diagnoses Closed fracture of left proximal humerus S4
[2025-04-29 07:29] LABS: Hematocrit (blood only) 36.7 % (37.0-47.0); Hemoglobin 12.4 g/dl (12.0-16.0); Immature Granulocytes # (auto) 0.02 K/uL (0.01-0.20); Immature Granulocytes % (auto) 0.3 %; Mean Corpuscular Hemoglobin 31.3 pg (25.0-34.0); Mean Corpuscular Volume 92.7 fL (80.0-100.0); Platelet Count 214 K/uL (130-400); RDW Standard Deviation 49.6 fL (36.4-46.3); Red Blood Count 3.96 M/uL (4.20-5.40); White Blood Count 6.28 K/ul (4.8-10.8)
[2025-04-29 07:46] LABS: Anion Gap 6.0 (3-11); Blood Urea Nitrogen 23.0 mg/dl (6-23); Calcium 9.0 mg/dl (8.6-10.3); Carbon Dioxide 27.0 mmol/L (21-32); Chloride 107.0 mmol/L (98-107); Creatinine Clr Calc Pharmacy 43.0 ml/min; Glucose 114.0 mg/dl (70-99(Fasting)); Potassium 4.5 mmol/L (3.5-5.1); Sodium 140.0 mmol/L (136-145)
[2025-04-29] MEDS: KETOROLAC TROMETHAMINE 15 MG/ML VIAL IV PRN (08:35)
[2025-04-29] MEDS: CHOLECALCIFEROL 125 MCG (5,000 UNITS) TAB PO SCH (08:36)
[2025-04-29] MEDS: LOSARTAN POTASSIUM 50 MG TAB PO SCH (08:36)
[2025-04-29] MEDS: DOCUSATE SODIUM 100 MG CAP PO SCH (08:39)
[2025-04-29] MEDS: POLYETHYLENE (MIRALAX) 17 GM PACK PO SCH (08:39)
--- NOTE | 2025-04-29 16:28 | Hospitalist Progress Note ---
"Date of Service April 29, 2025 Assessment & Plan (1) Ambulatory dysfunction: (2) Closed left humeral fracture: (3) Acute pain of left knee: Plan This patient is an 85-year-old female who presented on the morning of 04/28 after sustaining a mechanical fall at home. She was standing at the side of her bed taking off of a flap when she fell forward and landed on her left face, shoulder, and knee. Acute proximal left humerus fracture found on additional imaging; all other imaging negative for acute fracture/abnormalities. #Acute proximal left humerus fracture Nondisplaced fracture, however this does extend superiorly undermining of the greater tuberosity Orthopedic surgery consult appreciated Nonoperative; NWB LUE Repeat x-ray in 2 to 3 weeks Sling placement Scheduled acetaminophen 1000 mg p.o. q8h for pain control Oxycodone 5 mg p.o. q4h as needed for moderate pain (4-6) Morphine 4 mg IV q4h as needed for severe pain (7-10) Bowel regimen with MiraLAX QAM and docusate sodium BID Hgb trend: 13.6 -> 12.4 (stable) #Mechanical fall | ambulatory function | left knee pain No acute fracture of the left knee on x-ray imaging PT/OT evaluations appreciated OT recommending short-term rehab stay due to decreased ADLs, functional transfers, and ambulation PT recommended acute rehab due to high fall risk CM following; patient reported [facility] would be her first choice Fall precautions #HTN Continue amlodipine, losartan #HLD Continue simvastatin Disposition: Continued stay on [facility]; awaiting rehab placement VTE PPx: Lovenox 40 mg SQ q24h Updated patient's son (Solomon) who lives in [place] over the phone on 04/28. Admission and Anticipated Discharge Date Admission Date: April 28, 2025 Supervising Physician Co-Signing Physician Notes Attending Attestation - Chart reviewed, care plan d/w ANGELA Moore. I agree w/ the aguila components of his documentation. Shawn Daniel MD Subjective Mrs. Bangura is still having significant pain in the left shoulder this morning. She reports it is an 8 out of 10 at present. She does not believe the oxycodone has been helping as much today. She did sleep well (approximately 5 hours last night), but is now feeling groggy. She used a cane to get up with physical therapy today, but was feeling very nauseous, and did need to sit back down as she was feeling hot and sweaty. ROS: Patient endorses constant left shoulder pain, and generalized fatigue. Patient denies chest pain, SOB, nausea, vomiting, left knee pain, or numbness or tingling going down the left arm. Review of Systems Review of Systems: See HPI above Physical Exam Physical Exam: General: Moderate physical distress secondary to left shoulder pain; non-toxic appearing; frail-appearing; cooperative; SpO2 92% on RA HEENT: normocephalic, atraumatic; PERRLA; vision and hearing intact Neck: supple; trachea midline Left shoulder: Tender to palpation; no obvious deformities Skin: warm, dry without signs of tenting; no cyanosis CV: chest wall NTP; RRR; S1/S2 normal; no murmurs/rubs/gallops; pulses intact and symmetric at radial, DP, and PT Lungs: no acute respiratory distress; symmetrical chest wall expansion; clear breath sounds across all lung hyde w/o adventitious sounds; no wheezing ABD: Soft, NTP; BS present; no rebound/guarding; no distention MSK: no tics or fasciculations; no edema noted in the LEs b/l, nonerythematous UEs: 5/5 jammer hooker strength bilaterally; patient does demonstrate ability to flex and extend her left wrist, but attempts at flexion/extension of the the left elbow or shoulder are met with immediate pain LEs: Patient demonstrates ability to wiggle toes, plantarflex/dorsiflex, flex/extend the left knee, and lift legs off the bed bilaterally with 5/5 strength; contusion noted on the left knee, with moderate edema surrounding the patella (nonerythematous, not hot to touch) Neuro: A&Ox3; normal mood and affect; fluent speech; patient reports sensation is intact and symmetric in the fingers and lower arms bilaterally assessed via light touch in multiple dermatomes; NV intact at the ulnar and radial pulse bilaterally Results & Data Results & Data Vital Signs (Past 12 Hours) Vital Signs Temp Pulse Resp BP Pulse Ox Pulse Ox O2 Del Method 04/29/25 15:27 36.7 C 65 17 135/65 92 Room Air 04/29/25 14:15 93 04/29/25 07:15 36.5 C 76 18 151/69 H 96 Room Air O2 Flow Rate 04/29/25 15:27 04/29/25 14:15 0 04/29/25 07:15 PG Care Time/CCT Total # of Minutes Spent Total Time Spent with Patient: Total time spent is greater than 50% in coordination of care (as documented) at patient's floor/unit and/or counseling patient: Coding [place] [address] SUB INP/OBS CARE 3/50MIN Patient Type Established Medical Decision Making High Complexity Diagnoses Ambulatory dysfunction R26.2 Closed left humeral fracture S42.302A Acute pain of left knee M25.562"
[2025-04-30] MEDS: ONDANSETRON INJ 2 MG/ML 2 ML VIAL IV PRN (04:52)
[2025-04-30] MEDS: ENOXAPARIN INJ 40 MG/0.4 ML SYR SQ SCH (08:35)
--- NOTE | 2025-04-30 14:57 | Hospitalist Progress Note ---
"Date of Service April 30, 2025 Assessment & Plan (1) Ambulatory dysfunction: (2) Closed left humeral fracture: (3) Acute pain of left knee: Plan This patient is an 85-year-old female who presented on the morning of 04/28 after sustaining a mechanical fall at home. She was standing at the side of her bed taking off of a flap when she fell forward and landed on her left face, shoulder, and knee. Acute proximal left humerus fracture found on additional imaging; all other imaging negative for acute fracture/abnormalities. #Acute proximal left humerus fracture Nondisplaced fracture, however this does extend superiorly undermining of the greater tuberosity Orthopedic surgery consult appreciated Nonoperative; NWB LUE Repeat x-ray in 2 to 3 weeks Sling placement Scheduled acetaminophen 1000 mg p.o. q8h for pain control Oxycodone 5 mg p.o. q4h as needed for moderate pain (4-6) Toradol 15 mg IV q6h as needed for moderate pain (4-6) Morphine 4 mg IV q4h as needed for severe pain (7-10) Bowel regimen with MiraLAX QAM and docusate sodium BID Hgb trend: 13.6 -> 12.4 (stable) #Mechanical fall | ambulatory function | left knee pain No acute fracture of the left knee on x-ray imaging PT/OT evaluations appreciated OT recommending short-term rehab stay due to decreased ADLs, functional transfers, and ambulation PT recommended acute rehab due to high fall risk CM following; patient reported [facility] would be her first choice Fall precautions #HTN Continue amlodipine, losartan #HLD Continue simvastatin Disposition: Continued stay on [facility]; awaiting rehab placement Insurance authorization submitted for [facility] on 04/30; won't have a bed available until Thursday 05/03 VTE PPx: Lovenox 40 mg SQ q24h Updated patient's son (Solomon) who lives in [place] over the phone on 04/28. Updated patient's neice (Brenda) at bedside on 04/30. Admission and Anticipated Discharge Date Admission Date: April 28, 2025 Supervising Physician Co-Signing Physician Notes Attending Attestation - Chart reviewed, care plan d/w ANGELA Moore. I agree w/ the aguila components of his documentation. Shawn Daniel MD Subjective Mrs. Bangura is still struggling with pain control on 04/30. She is unsure if the oxycodone has been helping. She rates the pain in her left shoulder as a 7 out of 10 this morning. She still feeling very dizzy and lightheaded when she is up walking around, and this does make her nauseous. She feels that Toradol has been the best thing for taking away her pain. ROS: Patient endorses constant left shoulder pain, generalized fatigue, and lightheadedness/nausea with ambulation. Patient denies chest pain, SOB, nausea, vomiting, left knee pain, or numbness/tingling going down the left arm. Review of Systems Review of Systems: See HPI above Physical Exam Physical Exam: General: Mild physical distress secondary to left shoulder pain; niece (Brenda) at bedside; non-toxic appearing; frail-appearing; cooperative; SpO2 94% on RA HEENT: normocephalic, atraumatic; PERRLA; vision and hearing intact Neck: supple; trachea midline Left shoulder: Tender to palpation; no obvious deformities; no bruising on the left shoulder appreciated Skin: warm, dry without signs of tenting; no cyanosis CV: chest wall NTP; RRR; S1/S2 normal; no murmurs/rubs/gallops; pulses intact and symmetric at radial, DP, and PT Lungs: no acute respiratory distress; symmetrical chest wall expansion; clear breath sounds across all lung hyde w/o adventitious sounds; no wheezing ABD: Soft, NTP; BS present; no rebound/guarding; no distention MSK: no tics or fasciculations; no edema noted in the LEs b/l, nonerythematous UEs: 5/5 embedded firmware engineer strength bilaterally; patient does demonstrate ability to flex and extend her left wrist, but attempts at flexion/extension of the the left elbow or shoulder are met with immediate pain LEs: Patient demonstrates ability to wiggle toes, plantarflex/dorsiflex, flex/extend the left knee, and lift legs off the bed bilaterally with 5/5 strength; contusion noted on the left knee, with moderate edema surrounding the patella (nonerythematous, not hot to touch) Neuro: A&Ox3; normal mood and affect; fluent speech; patient reports sensation is intact and symmetric in the fingers and lower arms bilaterally assessed via light touch in multiple dermatomes; NV intact at the ulnar and radial pulse bilaterally Results & Data Results & Data Vital Signs (Past 12 Hours) Vital Signs Temp Pulse Resp BP Pulse Ox O2 Del Method 04/30/25 14:41 36.6 C 69 16 144/72 H 90 Room Air 04/30/25 07:07 37.0 C 74 16 149/83 H 94 Room Air PG Care Time/CCT Total # of Minutes Spent Total Time Spent with Patient: Total time spent is greater than 50% in coordination of care (as documented) at patient's floor/unit and/or counseling patient: Coding [place] [address] SUB INP/OBS CARE 2/35MIN Patient Type Established Medical Decision Making Moderate Complexity Diagnoses Ambulatory dysfunction R26.2 Closed left humeral fracture S42.302A Acute pain of left knee M25.562"
[2025-05-01 06:44] LABS: Hematocrit (blood only) 32.5 % (37.0-47.0); Hemoglobin 10.9 g/dl (12.0-16.0); Immature Granulocytes # (auto) 0.02 K/uL (0.01-0.20); Immature Granulocytes % (auto) 0.4 %; Mean Corpuscular Hemoglobin 31.1 pg (25.0-34.0); Mean Corpuscular Volume 92.6 fL (80.0-100.0); Platelet Count 193 K/uL (130-400); RDW Standard Deviation 48.7 fL (36.4-46.3); Red Blood Count 3.51 M/uL (4.20-5.40); White Blood Count 4.91 K/ul (4.8-10.8)
[2025-05-01 07:06] LABS: Anion Gap 6.0 (3-11); Blood Urea Nitrogen 27.0 mg/dl (6-23); Calcium 8.5 mg/dl (8.6-10.3); Carbon Dioxide 26.0 mmol/L (21-32); Chloride 106.0 mmol/L (98-107); Creatinine Clr Calc Pharmacy 38.4 ml/min; Glucose 100.0 mg/dl (70-99(Fasting)); Potassium 4.6 mmol/L (3.5-5.1); Sodium 138.0 mmol/L (136-145)
--- NOTE | 2025-05-01 12:27 | Hospitalist Progress Note ---
"Date of Service May 01, 2025 Assessment & Plan (1) Ambulatory dysfunction: (2) Closed left humeral fracture: (3) Acute pain of left knee: (4) Anemia: Plan This patient is an 85-year-old female who presented on the morning of 04/28 after sustaining a mechanical fall at home. She was standing at the side of her bed taking off of a flap when she fell forward and landed on her left face, shoulder, and knee. Acute proximal left humerus fracture found on additional imaging; all other imaging negative for acute fracture/abnormalities. #Acute proximal left humerus fracture Nondisplaced fracture, however this does extend superiorly undermining of the greater tuberosity Orthopedic surgery consult appreciated Nonoperative; NWB LUE Repeat x-ray in 2 to 3 weeks Sling placement Scheduled acetaminophen 1000 mg p.o. q8h for pain control Discontinue Toradol on 05/01 Initiate Celebrex 100 mg p.o. QAM Oxycodone 5 mg p.o. q4h as needed for moderate pain (4-6) Morphine 4 mg IV q4h as needed for severe pain (7-10) Bowel regimen with MiraLAX QAM and docusate sodium BID #Mechanical fall | ambulatory function | left knee pain No acute fracture of the left knee on x-ray imaging PT/OT evaluations appreciated OT recommending short-term rehab stay due to decreased ADLs, functional transfers, and ambulation PT recommended acute rehab due to high fall risk CM following; patient reported [facility] would be her first choice Fall precautions #Anemia Hgb downtrended to 10.9 on the morning of 05/01 In setting of acute trauma/left humerus fracture No active bleeding on physical exam Discontinue Toradol (as above) Hold Lovenox pending AM lab draw on 05/02 #HTN Continue amlodipine, losartan #HLD Continue simvastatin Disposition: Continued stay on [facility]; awaiting rehab placement Insurance authorization submitted for [facility] on 04/30; won't have a bed available until Thursday 05/03 VTE PPx: SCDs Updated patient's son (Solomon) who lives in [place] over the phone on 04/28. Updated patient's neice (Brenda) at bedside on 04/30. Admission and Anticipated Discharge Date Admission Date: April 30, 2025 Supervising Physician Co-Signing Physician Notes Attending Attestation - Chart reviewed, care plan d/w ANGELA Moore. I agree w/ the aguila components of his documentation. Shawn Daniel MD Subjective Mrs. Bangura reports her left shoulder pain is better today compared to yesterday. Yesterday it was having around a 7 or 8 out of 10, but today it is down to a 6. She was able to ambulate with physical therapy 135 feet in the hallway today, and this did not exacerbate the pain in her left knee. She is still experiencing recurrence of lightheadedness, nausea, and feeling hot after walking, which is new for her. Other than that, she slept well, and has been eating and drinking well this morning. She does believe that the oxycodone has been helping control her pain, and she is amenable to trying Celebrex today. No prior history of cardiac disease, CABG, or strokes. 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 Patient denies chest pain, PAYNE with walking, abdominal pain, vomiting, numbness or tingling going down the left arm, blood in your stool, or burning with urination. Review of Systems Review of Systems: See HPI above Physical Exam Physical Exam: General: No acute distress; pleasant affect; non-toxic appearing; frail- appearing; cooperative; SpO2 94% on RA HEENT: normocephalic, atraumatic; PERRLA; vision and hearing intact Neck: supple; trachea midline Left shoulder: Tender to palpation; no obvious deformities; no bruising on the left shoulder appreciated Skin: warm, dry without signs of tenting; no cyanosis CV: chest wall NTP; RRR; S1/S2 normal; no murmurs/rubs/gallops; pulses intact and symmetric at radial, DP, and PT Lungs: no acute respiratory distress; symmetrical chest wall expansion; clear breath sounds across all lung hyde w/o adventitious sounds; no wheezing ABD: Soft, NTP; BS present; no rebound/guarding; no distention MSK: no tics or fasciculations; no edema noted in the LEs b/l, nonerythematous UEs: 5/5 bobj developer strength bilaterally; patient does demonstrate ability to flex and extend her left wrist, but attempts at flexion/extension of the the left elbow or shoulder are met with immediate pain LEs: Patient demonstrates ability to wiggle toes, plantarflex/dorsiflex, flex/extend the left knee, and lift legs off the bed bilaterally with 5/5 strength; contusion noted on the left knee, with moderate edema surrounding the patella (nonerythematous, not hot to touch) Neuro: A&Ox3; normal mood and affect; fluent speech; patient reports sensation is intact and symmetric in the fingers and lower arms bilaterally assessed via light touch in multiple dermatomes; NV intact at the ulnar and radial pulse bilaterally Results & Data Results & Data Vital Signs (Past 12 Hours) Vital Signs Temp Pulse Resp BP Pulse Ox O2 Del Method 05/01/25 07:28 36.6 C 78 18 143/74 H 94 Room Air PG Care Time/CCT Total # of Minutes Spent Total Time Spent with Patient: Total time spent is greater than 50% in coordination of care (as documented) at patient's floor/unit and/or counseling patient: Coding [place] [address] SUB INP/OBS CARE 2/35MIN Patient Type Established Medical Decision Making Moderate Complexity Diagnoses Ambulatory dysfunction R26.2 Closed left humeral fracture S42.302A Acute pain of left knee M25.562 Anemia D64.9"
[2025-05-01] MEDS: CELECOXIB 100 MG CAP PO STA (13:03)
[2025-05-02 06:55] LABS: Hematocrit (blood only) 34.1 % (37.0-47.0); Hemoglobin 11.8 g/dl (12.0-16.0); Mean Corpuscular Hemoglobin 31.7 pg (25.0-34.0); Mean Corpuscular Volume 91.7 fL (80.0-100.0); Platelet Count 220 K/uL (130-400); RDW Standard Deviation 48.7 fL (36.4-46.3); Red Blood Count 3.72 M/uL (4.20-5.40); White Blood Count 4.82 K/ul (4.8-10.8)
[2025-05-02 07:13] LABS: Anion Gap 7.0 (3-11); Blood Urea Nitrogen 24.0 mg/dl (6-23); Calcium 9.2 mg/dl (8.6-10.3); Carbon Dioxide 26.0 mmol/L (21-32); Chloride 107.0 mmol/L (98-107); Creatinine Clr Calc Pharmacy 46.2 ml/min; Glucose 107.0 mg/dl (70-99(Fasting)); Potassium 4.3 mmol/L (3.5-5.1); Sodium 140.0 mmol/L (136-145)
[2025-05-02] MEDS: CELECOXIB 100 MG CAP PO SCH (09:39)
--- NOTE | 2025-05-02 11:51 | Hospitalist Progress Note ---
"Date of Service May 02, 2025 Assessment & Plan (1) Ambulatory dysfunction: (2) Closed left humeral fracture: (3) Acute pain of left knee: (4) Anemia: Plan This patient is an 85-year-old female who presented on the morning of 04/28 after sustaining a mechanical fall at home. She was standing at the side of her bed taking off of a flap when she fell forward and landed on her left face, shoulder, and knee. Acute proximal left humerus fracture found on additional imaging; all other imaging negative for acute fracture/abnormalities. #Acute proximal left humerus fracture Nondisplaced fracture, however this does extend superiorly undermining of the greater tuberosity Orthopedic surgery consult appreciated Nonoperative; NWB LUE Repeat x-ray in 2 to 3 weeks Sling placement Scheduled acetaminophen 1000 mg p.o. q8h for pain control Discontinue Toradol on 05/01 Initiate Celebrex 100 mg p.o. QAM Oxycodone 5 mg p.o. q4h as needed for moderate pain (4-6) Morphine 4 mg IV q4h as needed for severe pain (7-10) Bowel regimen with MiraLAX QAM and docusate sodium BID #Mechanical fall | ambulatory function | left knee pain No acute fracture of the left knee on x-ray imaging PT/OT evaluations appreciated OT recommending short-term rehab stay due to decreased ADLs, functional transfers, and ambulation PT recommended acute rehab due to high fall risk CM following; patient reported [facility] be her first choice Fall precautions #Nausea | lightheadedness with ambulation New since being in the hospital Per patient, expected to be medication induced (from narcotics) ? Autonomic dysfunction vs. infection COVID, flu, RSV negative Zofran PRN #Asymptomatic bacteriuria UA with 3+ bacteria on arrival, but also with high level of epithelial cells; ?Contaminant Clinically, patient denies any urinary symptoms (no dysuria or burning with urination) No leukocytosis; hemodynamically stable UCx finalized without growth or sensitivities Will defer antibiotics at this time However, with ongoing nausea/lightheadedness without clear etiology, will order repeat UA on 05/02 #Anemia Hgb trend: 12.4 -> 10.9 -> 11.8 (stable) In setting of acute trauma/left humerus fracture No active bleeding on physical exam Discontinue Toradol (as above) Okay to continue chemical DVT PPx with Lovenox #HTN Continue amlodipine, losartan #HLD Continue simvastatin Disposition: Continued stay on MedSurg; awaiting rehab placement Insurance authorization submitted for [facility] on 04/30; won't have a bed available until Thursday 05/03 VTE PPx: SCDs, Lovenox Updated patient's son (Solomon) who lives in [place] over the phone on 04/28. Updated patient's neice (Brenda) at bedside on 04/30. Admission and Anticipated Discharge Date Admission Date: April 30, 2025 Supervising Physician Co-Signing Physician Notes Attending Attestation - Chart reviewed, care plan d/w PA Kameron Moore. I agree w/ the aguila components of his documentation. Shawn Daniel MD Subjective Mrs. Bangura is feeling unwell this morning. She says she woke up feeling nauseous, and after getting up to go to the bathroom, she returned to her seat feeling nauseous, lightheaded, and dizzy. This was approximately 30 to 45 minutes ago, and she still feels this way. She reports that resting and taking deep breaths usually helps to subside, but she is unsure why she feels this way with walking. Her left shoulder pain is better today compared to yesterday (5 out of 10), but she is not sure if the Celebrex has been helping. She did have 2 soft bowel movements today. ROS: Patient endorses left shoulder pain, and nausea/lightheadedness upon waking this morning, as well as with walking. Patient denies fevers overnight, chest pain, SOB, PAYNE, abdominal pain, vomiting, diarrhea, blood in the urine or stool, burning with urination, or changes in urinary/bowel habits. Review of Systems Review of Systems: See HPI above Physical Exam Physical Exam: General: No acute distress; pleasant affect; non-toxic appearing; frail- appearing; cooperative; SpO2 94% on RA HEENT: normocephalic, atraumatic; PERRLA; vision and hearing intact Neck: supple; trachea midline Left shoulder: Tender to palpation; no obvious deformities; no bruising on the left shoulder appreciated Skin: warm, dry without signs of tenting; no cyanosis CV: chest wall NTP; RRR; S1/S2 normal; no murmurs/rubs/gallops; pulses intact and symmetric at radial, DP, and PT Lungs: no acute respiratory distress; symmetrical chest wall expansion; clear breath sounds across all lung hyde w/o adventitious sounds; no wheezing ABD: Soft, NTP; BS present; no rebound/guarding; no distention MSK: no tics or fasciculations; no edema noted in the LEs b/l, nonerythematous UEs: 5/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 strength 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; patient does demonstrate ability to flex and extend her left wrist, but attempts at flexion/extension of the the left elbow or shoulder are met with immediate pain LEs: Patient demonstrates ability to wiggle toes, plantarflex/dorsiflex, flex/extend the left knee, and lift legs off the bed bilaterally with 5/5 strength; contusion noted on the left knee, with moderate edema surrounding the patella (nonerythematous, not hot to touch) Neuro: A&Ox3; normal mood and affect; fluent speech; patient reports sensation is intact and symmetric in the fingers and lower arms bilaterally assessed via light touch in multiple dermatomes; NV intact at the ulnar and radial pulse bilaterally Results & Data Results & Data Vital Signs (Past 12 Hours) Vital Signs Temp Pulse Resp BP Pulse Ox O2 Del Method 05/02/25 07:01 36.9 C 69 18 157/72 H 95 Room Air PG Care Time/CCT Total # of Minutes Spent Total Time Spent with Patient: Total time spent is greater than 50% in coordination of care (as documented) at patient's floor/unit and/or counseling patient: Coding [place] [address] SUB INP/OBS CARE 3/50MIN Patient Type Established Medical Decision Making High Complexity Diagnoses Ambulatory dysfunction R26.2 Closed left humeral fracture S42.302A Acute pain of left knee M25.562 Anemia D64.9"
[2025-05-02] MEDS: ONDANSETRON INJ 2 MG/ML 2 ML VIAL IV STA (12:37)
[2025-05-02 16:05] LABS: Influenza A virus by PCR Negative (Neg); Influenza B virus by PCR Negative (Neg); SARS CoV2 RNA(COVID-19) Ceph NEGATIVE (Negative)
[2025-05-02 21:15] LABS: Appearance Urine Clear (Clear); Bacteria Urine Automated None Seen (None Seen); Cast Urine Automated 0-2 /lpf (0-2); Epithelial Cell Urine Auto 0-2 /hpf (0-2); Glucose Urine UA Negative (Negative)
[2025-05-02 22:55] VITALS: TEMP 98.1; O2SAT 97
[2025-05-03 07:05] VITALS: BP 160/73; PULSE 68; RESP 16
[2025-05-03 07:49] LABS: Hematocrit (blood only) 34.9 % (37.0-47.0); Hemoglobin 11.8 g/dl (12.0-16.0); Mean Corpuscular Hemoglobin 31.3 pg (25.0-34.0); Mean Corpuscular Volume 92.6 fL (80.0-100.0); Platelet Count 227 K/uL (130-400); RDW Standard Deviation 49.3 fL (36.4-46.3); Red Blood Count 3.77 M/uL (4.20-5.40); White Blood Count 4.47 K/ul (4.8-10.8)
[2025-05-03 08:09] LABS: Anion Gap 5.0 (3-11); Blood Urea Nitrogen 21.0 mg/dl (6-23); Calcium 9.1 mg/dl (8.6-10.3); Carbon Dioxide 27.0 mmol/L (21-32); Chloride 108.0 mmol/L (98-107); Creatinine Clr Calc Pharmacy 44.8 ml/min; Glucose 101.0 mg/dl (70-99(Fasting)); Potassium 4.2 mmol/L (3.5-5.1); Sodium 140.0 mmol/L (136-145)
--- NOTE | 2025-05-03 10:03 | Discharge Summary ---
Discharge Summary Date of Service May 03, 2025 Principal Dx & Hospital Course #1 = Principal Diagnosis (1) Ambulatory dysfunction: (2) Closed left humeral fracture: (3) Acute pain of left knee: (4) Anemia: Plan This patient is an 85-year-old female who presented on the morning of 04/28 after sustaining a mechanical fall at home. She was standing at the side of her bed taking off of a flap when she fell forward and landed on her left face, shoulder, and knee. Acute proximal left humerus fracture found on additional imaging; all other imaging negative for acute fracture/abnormalities. #Acute proximal left humerus fracture Nondisplaced fracture, however this does extend superiorly undermining of the greater tuberosity Orthopedic surgery consult appreciated Nonoperative; NWB LUE Repeat x-ray in 2 to 3 weeks Sling placement Scheduled acetaminophen 1000 mg p.o. q8h for pain control Discontinue Toradol on 05/01 Initiate Celebrex 100 mg p.o. QAM Oxycodone 5 mg p.o. q4h as needed for moderate pain (4-6) Morphine 4 mg IV q4h as needed for severe pain (7-10) while hospitalized Bowel regimen with MiraLAX QAM and docusate sodium BID #Mechanical fall | ambulatory function | left knee pain No acute fracture of the left knee on x-ray imaging PT/OT evaluations appreciated OT recommending short-term rehab stay due to decreased ADLs, functional transfers, and ambulation PT recommended acute rehab due to high fall risk CM following; patient reported [facility] her first choice Fall precautions #Nausea | lightheadedness with ambulation New since being in the hospital Per patient, expected to be medication induced (from narcotics) ? Autonomic dysfunction vs. infection COVID, flu, RSV negative Zofran PRN #Asymptomatic bacteriuria UA with 3+ bacteria on arrival, but also with high level of epithelial cells; ?Contaminant Clinically, patient denies any urinary symptoms (no dysuria or burning with urination) No leukocytosis; hemodynamically stable UCx finalized without growth or sensitivities Will defer antibiotics at this time However, with ongoing nausea/lightheadedness without clear etiology, will order repeat UA on 05/02 #Anemia Hgb trend: 12.4 -> 10.9 -> 11.8 (stable) In setting of acute trauma/left humerus fracture No active bleeding on physical exam Discontinue Toradol (as above) Okay to continue chemical DVT PPx with Lovenox #HTN Continue amlodipine, losartan #HLD Continue simvastatin Disposition: Discharged to [facility] today, May 03 VTE PPx: SCDs, Lovenox while hospitalized Dr. Mcarthur updated patient's son (Solomon) who lives in [place] over the phone on 04/28. Dr. Mcarthur updated patient's neice (Brenda) at bedside on 04/30. Admission HPI Per Admitting Provider Mrs. Bangura is an 85-year-old female with PMH of arthritis, migraine, anxiety, depression, HTN, and HLD. She presented via EMS on 04/28 after sustaining a mechanical fall this morning. She got up out of her bed around 0530, and reports that her foot got stuck attempting to take off a flip-flop while standing on the side of the bed. She fell forward onto the left side of her body and struck her left face, shoulder, and knee. No LOC. No blood thinner use. Patient is normally independent at baseline, and does not use ambulatory assist devices. She lives alone, and had to crawl to the kitchen to reach her phone. This took approximately half an hour, until she could get ahold of her niece (Brenda) who lives 10 minutes away. Patient denies any pain in her head or left knee at admission. However she has 10 out of 10 pain in her left shoulder with movements. She describes it as a dull/steady pain. No radiation down the arm, to the back, or to the chest wall. She denies any numbness or tingling going down her left arm. Patient did not take her regular morning medicines today. She manages her own medicine at home. No recent change in medications in the past week. She reports this is her "first fall" and denies any prior injuries to her left shoulder. She denies any history of knee, hip, or shoulder replacements. She does not use supplemental oxygen at baseline or CPAP at night. 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 No left knee pain at present. Patient denies smoking, tobacco use, or recent alcohol use. Patient lives with a cat ("Putty") who is being watched by patient's niece. Patient is hypertensive at 143/67; vitals otherwise stable. ED course: Fentanyl citrate 50 mcg IV Acetaminophen 1000 mg IV Morphine sulfate 4 mg IV Ondansetron 4 mg IV ROS: Patient endorses left shoulder pain. Patient denies fever, chills, night-sweats, dizziness/lightheadedness prior to fall, headaches, changes in vision, chest pain, SOB, cough, pleuritic CP, abdominal pain, N/V/D, left knee pain, burning with urination, changes in urinary/bowel habits, or numbness or tingling going down the left arm. Discharge Plan Discharge Items Patient Disposition: Transfer Custodial Fac Reason For Visit: FALL, AMB DYSFUNTION, L PROX HUMERUS FX Discharge Diagnosis: Mechanical fall, proximal left humerus fracture, ambulatory dysfunction Condition on Discharge: Good Activity: As commented below Non-emergency contact: Primary Care Provider and Surgeon Call non-emergency contact if: your symptoms worsen Follow-up/Referrals: Linette Dubon MD [Primary Care Provider] - Diet: Regular Addtl Attending Provider Instructions: Follow orthopedic instructions regarding left arm weightbearing. Left upper arm x-ray needs to be repeated in 2 to 3 weeks Pending Studies at Discharge: No Stand-Alone Forms: [facility] Skilled Items Patient informed of condition?: Yes DNR: Yes Discharge Level of Care: Skilled Communicable Disease: No Discharge Prognosis: Stable Lines: None Urinary Catheter: No Medications and DC Order Prescriptions: New acetaminophen 325 mg Tablet 650 mg PO TID Qty: 10 0RF polyethylene glycol 3350 [Miralax] 17 gram Powder In Packet 17 g PO DAILY Qty: 10 0RF docusate sodium 100 mg Capsule 100 mg PO BID Qty: 30 0RF celecoxib [Celebrex] 100 mg Capsule 100 mg PO QAM Qty: 10 0RF oxycodone 5 mg Tablet 5 mg PO Q4 PRN (Reason: pain) Qty: 10 0RF Continued multivitamin capsule 1 cap PO QAM Patient Comments: 04/28- otc unable to verify simvastatin 40 mg tablet 40 mg PO QPM amlodipine 5 mg tablet 2.5 mg PO DAILY losartan 50 mg Tablet 100 mg PO QAM Emergen-C 1,000 mg Powder Effervescent In Packet 1 ea PO [id number] Patient Comments: 04/28- otc unable to verify cholecalciferol (vitamin D3) [Vitamin D3] 125 mcg (5,000 unit) Tablet 125 mcg PO QAM Patient Comments: 11/5- otc unable to verify polyethylene glycol 3350 [Miralax] 17 gram Powder In Packet 17 g PO UD Patient Comments: 04/28- otc unable to verify docusate sodium 100 mg Capsule 0 mg PO UD Patient Comments: 04/28- otc unable to verify Discharge Orders: Discharge Order (Routine); Ordered 05/03/25 Ordered By: Kash Cazares Admission Data Admit Date/Time: 04/30/25 15:03 Attending Provider: Kash Cazares Admit Provider: Gurpreet Gonzalez Primary Care Provider: Linette Dubon Other Providers: Gurpreet Gonzalez; Eugene Parrish; [facility] Hospital Stay Data Consultations 04/28/25 11:12 ED Decision to Admit Stat 04/28/25 11:58 Consult Orthopedic Surgery Routine Diagnostic Imagining Performed 04/28/25 07:56 CT cervical spine wo con Stat CT head/brain wo con Stat Pending Results Patient Have Any Pending Studies at Discharge: No Discharge Instructions Given to Patient (Per Discharging Provider) Follow orthopedic instructions regarding left arm weightbearing. Left upper arm x-ray needs to be repeated in 2 to 3 weeks Total Time Total Time Spent Total Time Spent (In Minutes): 45 minutes. Total time included patient exam, discharge planning, medication reconciliation. Coding Level of Care Code 95574 INP/OBS DISCH >30 MIN Diagnoses Ambulatory dysfunction R26.2 Closed left humeral fracture S42.302A Acute pain of left knee M25.562 Anemia D64.9
== END 2025-05-03 13:30 | DRG 563 ==
LOC: ED 07:48 → EDINP 07:48 → SUATTDRO 12:02 → 3N 14:05 → SUATTDRO 04-30 15:03